=== PATIENT | male | born 1995 | race Caucasian/White ===

== ENCOUNTER 2022-05-27 03:43 | Emergency (ER) | payer OTHER, SELFPAY ==
[2022-05-27 03:54] VITALS: BP 166/120; PULSE 115; RESP 20; TEMP 36.6; O2SAT 96; BMI 31.9
--- NOTE | 2022-05-27 03:55 | XRR_ITS ---
PROCEDURE INFORMATION: Exam: XR Left Forearm Exam date and time: 05/27/2022 3:59 AM Age: 27 years old Clinical indication: Arm, lower; Lower or forearm; Patient HX: Swelling and pain to left forearm x 2 days from iv needle use. TECHNIQUE: Imaging protocol: Radiologic exam of the Left forearm. Views: 2 views. COMPARISON: No relevant prior studies available. FINDINGS: Bones/joints: Normal. Soft tissues: No foreign body. Negative for soft tissue gas. Mild superficial soft tissue swelling. XR/XR forearm LT 2V [id number] IMPRESSION: No retained soft tissue foreign body identified.
--- NOTE | 2022-05-27 03:55 | USR_ITS ---
PROCEDURE INFORMATION: Exam: US Duplex Left Upper Extremity Veins, Limited Exam date and time: 05/27/2022 4:07 AM Age: 27 years old Clinical indication: Arm, upper; Patient HX: Painful left upper extremity x 2-3 days. No trauma. No history of dvt per patient. ; Additional info: Pain TECHNIQUE: Imaging protocol: Real-time duplex ultrasound of the Left extremity with 2-D velásquez scale, color Doppler flow and spectral waveform analysis including responses to compression and other maneuvers (when performed) with image documentation. Limited exam focused on the left upper extremity veins. COMPARISON: CR ([facility], ) 05/27/2022 3:59 AM FINDINGS: Left deep veins: Unremarkable. Axillary and brachial veins are patent throughout without thrombus. Normal Doppler waveforms. Normal compressibility and/or augmentation response. Visualized internal jugular and subclavian veins are patent. Radial and ulnar veins are patent. Left superficial veins: Unremarkable. Visualized cephalic and basilic veins are patent without thrombus. Soft tissues: Unremarkable. US/[place] [id number] IMPRESSION: No evidence of deep vein thrombosis or superficial thrombophlebitis within left upper extremity.
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
[2022-05-27] MEDS: HYDROcodone-acetaminophen 5-325 mg Tablet 1 TAB PO (03:59)
[2022-05-27 04:35] LABS: Basophils % 0.2 %; Eosinophils # 0.1 10^3/uL (0.0-0.8); Eosinophils % 0.5 %; Hematocrit 49.5 % (42.0-52.0); Hemoglobin 16.3 g/dL (11.7-16.6); Lymphocytes # 2.3 10^3/uL (0.8-4.8); Lymphocytes % 13.9 %; Mean Corpuscular HGB Conc 32.9 g/dL (30.0-36.0); Mean Corpuscular Hemoglobin 27.6 pg (28.0-34.0); Mean Corpuscular Volume 83.8 fl (80-94); Mean Platelet Volume 9.4 fL (7.4-10.4); Monocytes # 2.2 10^3/uL (0.2-0.9); Monocytes % 13.2 %; Neutrophils # 11.87 10^3/uL (1.8-7.7); Nucleated Red Blood Cells % 0 %; Platelet Count 309 10^3/cmm (130-400); Red Blood Count 5.91 10^6/uL (4.1-5.3); Red Cell Distribution Width 12.9 % (12.1-15.1); White Blood Count 16.5 10^3/uL (4.0-10.0)
--- NOTE | 2022-05-27 04:48 | CTR_ITS ---
PROCEDURE INFORMATION: Exam: CTA Left Upper Extremity With Contrast Exam date and time: 05/27/2022 5:05 AM Age: 27 years old Clinical indication: Arm, lower; Lower or forearm; Patient HX: C/O left forearm pain and swelling x 2 days after iv needle use. TECHNIQUE: Imaging protocol: Computed tomographic angiography of the Left upper extremity with contrast, including non-contrast images if performed. 3D rendering (Not supervised by radiologist): MIP and/or 3D reconstructed images were created by the technologist. Radiation optimization: All CT scans at this facility use at least one of these dose optimization techniques: automated exposure control; mA and/or kV adjustment per patient size (includes targeted exams where dose is matched to clinical indication); or iterative reconstruction. Contrast material: OMNI 350; Contrast volume: 100 ml; Contrast route: INTRAVENOUS (IV); Other protocol: This patient has received 0 known CTs and 0 known cardiac nuclear medicine studies in the 12 months prior to the current study. COMPARISON: CR ([facility], ) 05/27/2022 3:59 AM RADIATION DOSE METRICS: Total DLP (mGy-cm): 294.38 FINDINGS: Left subclavian artery: No acute findings. No occlusion or significant stenosis. Axillary artery: No acute findings. No occlusion or significant stenosis. Brachial artery: No acute findings. No occlusion or significant stenosis. Radial artery: No acute findings. No occlusion or significant stenosis. Ulnar artery: No acute findings. No occlusion or significant stenosis. Bones/joints: No acute fracture. No dislocation. Soft tissues: Mild generalized superficial soft tissue edema the ventral surface of the proximal forearm. Negative for soft tissue gas. Negative for soft tissue foreign body. Negative for peripherally enhancing fluid collection. There may be mild generalized edema in the musculature underlying the region superficial soft tissue edema. CT/CT forearm LT w con [id number] IMPRESSION: Proximal forearm cellulitis changes. Myositis not excluded.
[2022-05-27 05:03] LABS: Erythrocyte Sedimentation Rate < 1 mm/hr (0-10)
[2022-05-27 05:12] LABS: Alanine Aminotransferase 21 U/L (0-41); Albumin Level 4.6 g/dL (3.5-5.2); Alkaline Phosphatase 74 U/L (40-130); Anion Gap 13.7 (5-19); Aspartate Amino Transferase 19 U/L (0-40); Blood Urea Nitrogen 10 mg/dL (6-20); Calcium 9.4 mg/dL (8.5-10.5); Carbon Dioxide 27 mmol/L (22-29); Chloride 101 mmol/L (98-107); Globulin 2.6 g/dL (1.3-4.6); Glomerular Filtration Rate 79.7 mL/min (90-130); Glucose 91 mg/dL (65-115); Osmolality Calculated 285 mOsm/kg (285-295); Potassium 3.7 mmol/L (3.5-5.1); Sodium 138 mmol/L (136-145); Total Bilirubin 0.5 mg/dL (0.15-1.2); Total Protein 7.2 g/dL (6.6-8.7)
[2022-05-27] MEDS: iohexol 350 mg/mL 500 mL Btl (per mL) IV (05:13)
[2022-05-27] MEDS: cephALEXin 500 mg Capsule PO (05:38)
== END 2022-05-27 05:47 | disposition home or self-care (01) ==
PROVIDERS: Emergency Provider Emergency Medicine
DX: L03.114 Cellulitis of left upper limb (principal)
CPT/HCPCS: 73090; 73201; 80053; 85025; 85651; 86140; 93971; 99285; Q9967

== ENCOUNTER 2022-06-24 15:39 | Emergency (ER) | payer OTHER, SELFPAY ==
[2022-06-24 15:46] VITALS: BP 152/83; PULSE 98; RESP 20; TEMP 36.4; O2SAT 97; BMI 32.3
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
[2022-06-24] MEDS: tetanus-dipt-pertussis 0.5 mL SDV IM (16:33)
[2022-06-24 16:53] VITALS: PULSE 88; RESP 16; O2SAT 100
== END 2022-06-24 16:55 | disposition home or self-care (01) ==
PROVIDERS: Emergency Provider Nurse Practitioner Family; PCP Nurse Practitioner Family
DX: S81.811A Laceration without foreign body, right lower leg, initial encounter (principal); W45.8XXA Other foreign body or object entering through skin, initial encounter; Z23 Encounter for immunization
CPT/HCPCS: 12001; 90471; 90715; 99283

== ENCOUNTER 2022-11-07 19:00 | Emergency (ER) | payer OTHER, SELFPAY ==
[2022-11-07 19:10] VITALS: BP 160/82; PULSE 103; RESP 22; TEMP 36.7; O2SAT 97; BMI 29.7
[2022-11-07 19:48] LABS: Basophils % 0.2 %; Eosinophils # 0.1 10^3/uL (0.0-0.8); Eosinophils % 1.1 %; Hematocrit 49.5 % (42.0-52.0); Hemoglobin 15.8 g/dL (11.7-16.6); Lymphocytes # 1.3 10^3/uL (0.8-4.8); Lymphocytes % 13.7 %; Mean Corpuscular HGB Conc 31.9 g/dL (30.0-36.0); Mean Corpuscular Hemoglobin 26.5 pg (28.0-34.0); Mean Corpuscular Volume 83.1 fl (80-94); Mean Platelet Volume 9.2 fL (7.4-10.4); Monocytes % 10.6 %; Neutrophils # 6.89 10^3/uL (1.8-7.7); Nucleated Red Blood Cells % 0 %; Platelet Count 261 10^3/cmm (130-400); Red Blood Count 5.96 10^6/uL (4.1-5.3); Red Cell Distribution Width 13.2 % (12.1-15.1); White Blood Count 9.3 10^3/uL (4.0-10.0)
[2022-11-07] MEDS: dexamethasone 10 mg/mL INJ IVP (19:48)
[2022-11-07] MEDS: clindamycin 600 MG/50 ML PREMIX 100 MG IV (19:48)
[2022-11-07] MEDS: sodium chloride 0.9% 1,000 ML 999 ML IV (19:48)
[2022-11-07 20:06] LABS: Alanine Aminotransferase 86 U/L (0-41); Albumin Level 3.9 g/dL (3.5-5.2); Alkaline Phosphatase 181 U/L (40-130); Anion Gap 14.8 (5-19); Aspartate Amino Transferase 41 U/L (0-40); Blood Urea Nitrogen 6 mg/dL (6-20); Calcium 9.3 mg/dL (8.5-10.5); Carbon Dioxide 26 mmol/L (22-29); Chloride 102 mmol/L (98-107); Creatinine Clr Calc Pharmacy 115.3183; Globulin 3.3 g/dL (1.3-4.6); Glucose 170 mg/dL (65-115); Osmolality Calculated 290 mOsm/kg (285-295); Potassium 3.8 mmol/L (3.5-5.1); Sodium 139 mmol/L (136-145); Total Bilirubin 0.3 mg/dL (0.15-1.2); Total Protein 7.2 g/dL (6.6-8.7)
--- NOTE | 2022-11-07 20:07 | ED_ITS ---
HPI - Fever General: Chief Complaint: Fever Stated Complaint: fever Time Seen by Provider: 11/07/22 19:19 History of Present Illness: 27 years old male brought to emergency room by mother because of sore throat, fever, malaise and fatigue within the past 3 to 4 days. Patient describes his throat with as throbbing sensation with severity of 7 out of 10 especially with swallowing and drinking. Denies any drooling, cough, coughing up blood or vomiting blood. No sick contacts or recent foreign travel has any neck pain, headache, blurry vision or change in vision. Numbness or tingling. No dysuria, hematuria urine frequency. Associated symptoms: Reports chills Review of Systems General: Reports: 10 or more systems reviewed and unremarkable except in HPI and below Const: Reports: fever(s), chills, body aches and malaise; Denies: change in weight, fatigue or diaphoresis ENMT: Reports: throat pain, enlarged tonsils, mouth pain and oral sores; Denies: bleeding gums, dental pain or dry mouth Resp: Denies: dyspnea, productive cough, non-productive cough, wheezing, stridor or pain on inspiration Skin/Breast: Denies: rash, pruritus, erythema, photosensitivity, skin pain, skin tenderness, skin swelling, sores or new lesions PFSH ED PFSH: Medical History No pertinent past medical history Social History Substance/Drug Use: current Physical Exam Const: COMMON NORMALS: no acute distress, average body habitus, patient oriented x3 and no limitations HENMT: MOUTH: moist mucous membranes abnormal and Abnormal oral and palatal mucosa present ulceration; no drooling, lip not abnormal, no muffled voice, no trismus, no restricted motion and no thickened frenulum THROAT: uvula midline, abnormal tonsil and posterior oropharynx abnormal edema, erythema and exudates; no postnasal drainage Neck/C-Spine: COMMON NORMALS: full ROM, supple, no meningeal signs and no JVD Lymph: LYMPHATIC: lymphadenopathy submandibular Chest: COMMONS NORMALS: normal inspection of the chest, normal palpation of entire chest wall, normal inspection of the breasts and normal palpation of the breasts Breast/axilla inspection: Yes normal inspection of the breasts BREAST/AXILLA PALPATION: Yes normal palpation of the breasts Resp: COMMON NORMALS: normal respiratory effort, No retractions, No use of accessory muscles, clear to auscultation bilaterally and percussion normal AUSCULTATION: clear to auscultation bilaterally PERCUSSION: percussion normal Cardio: COMMON NORMALS: no JVD GI: COMMON NORMALS: Normal to inspection, nondistended, normoactive bowel sounds present, Soft to palpation, non-tender, No hepatosplenomegaly present, no masses and no bruits PALPATION: Yes Soft to palpation and Yes No hepatosplenomegaly present Neuro: COMMON NORMALS: patient oriented x3 MENINGEAL SIGNS: Yes no meningeal signs Course Vital Signs: Vital signs: Vital Signs Temperature 98.1 F 11/07/22 19:10 Pulse Rate 103 H 11/07/22 19:10 Respiratory Rate 22 H 11/07/22 19:10 Blood Pressure 160/82 11/07/22 19:10 Pulse Oximetry 97 11/07/22 19:10 Oxygen Delivery Me thod Room Air 11/07/22 19:10 MDM - Fever Medical Decision Making Patient was made comfortable emergency room. No acute distress. Patient was given IV fluid, IV steroid and IV antibiotics. I discussed the lab finding with patient with mother at bedside. She remained stable in no acute distress. Differential Diagnosis Likely abdominal pain (Pharyngitis, uveitis, tonsillar abscess, viral syndrome), acute appendicitis, calculus of kidney, constipation and diverticulitis Lab Data 11/07/22 19:42 11/07/22 19:42 Laboratory Results WBC 9.3 10^3/uL (4.0-10.0) 11/07/22 19:42 RBC 5.96 10^6/uL (4.1-5.3) H 11/07/22 19:42 Hgb 15.8 g/dL (11.7-16.6) 11/07/22 19:42 Hct 49.5 % (42.0-52.0) 11/07/22 19:42 MCV 83.1 fl (80-94) 11/07/22 19:42 MCH 26.5 pg (28.0-34.0) L 11/07/22 19:42 MCHC 31.9 g/dL (30.0-36.0) 11/07/22 19:42 RDW 13.2 % (12.1-15.1) 11/07/22 19:42 Plt Count 261 10^3/cmm (130-400) 11/07/22 19:42 MPV 9.2 fL (7.4-10.4) 11/07/22 19:42 Neut % (Auto) 74.0 % 11/07/22 19:42 Lymph % (Auto) 13.7 % 11/07/22 19:42 M[place]racken % (Auto) 10.6 % 11/07/22 19:42 Eos % (Auto) 1.1 % 11/07/22 19:42 Baso % (Auto) 0.2 % 11/07/22 19:42 Neut # (Auto) 6.89 10^3/uL (1.8-7.7) 11/07/22 19:42 Lymph # (Auto) 1.3 10^3/uL (0.8-4.8) 11/07/22 19:42 [place] # (Auto) 1.0 10^3/uL (0.2-0.9) H 11/07/22 19:42 Eos # (Auto) 0.1 10^3/uL (0.0-0.8) 11/07/22 19:42 Baso # (Auto) 0.0 10^3/uL (0.0-0.1) 11/07/22 19:42 Nucleated RBC % (auto) 0 % 11/07/22 19:42 Nucleated RBCs # 0.0 /100WBC 11/07/22 19:42 Sodium 139 mmol/L (136-145) 11/07/22 19:42 Potassium 3.8 mmol/L (3.5-5.1) 11/07/22 19:42 Chloride 102 mmol/L (98-107) 11/07/22 19:42 Carbon Dioxide 26 mmol/L (22-29) 11/07/22 19:42 Anion Gap 14.8 (5-19) 11/07/22 19:42 BUN 6 mg/dL (6-20) 11/07/22 19:42 Creatinine 1.0 mg/dL (0.7-1.2) 11/07/22 19:42 GFR Calculation 89.0 mL/min (90-130) L 11/07/22 19:42 Glucose 170 mg/dL (65-115) H 11/07/22 19:42 Calculated Osmolality 290 mOsm/kg (285-295) 11/07/22 19:42 Calcium 9.3 mg/dL (8.5-10.5) 11/07/22 19:42 Total Bilirubin 0.3 mg/dL (0.15-1.2) 11/07/22 19:42 AST 41 U/L (0-40) H 11/07/22 19:42 ALT 86 U/L (0-41) H 11/07/22 19:42 Alkaline Phosphatase 181 U/L (40-130) H 11/07/22 19:42 Total Protein 7.2 g/dL (6.6-8.7) 11/07/22 19:42 Albumin 3.9 g/dL (3.5-5.2) 11/07/22 19:42 Globulin 3.3 g/dL (1.3-4.6) 11/07/22 19:42 Monoscreen Negative (Negative) 11/07/22 19:42 Group A Strep Rapid Negative (Negative) 11/07/22 19:50 Discharge Plan Discharge Patient Disposition: Home Clinical Impression: Viral infection, Pharyngitis Condition: Stable Prescriptions: New Medrol (Jacob) 4 mg tablets,dose pack 4 mg PO DAILY Qty: 21 0RF clindamycin HCl 150 mg capsule 150 mg PO TID 7 Days Qty: 21 0RF No Action hydrocodone-acetaminophen 5-325 mg tablet 1 tab PO Q6H PRN (Reason: pain) Qty: 14 0RF Discharge Orders: Discharge ED (Routine); Ordered 11/07/22 Ordered By: Julia Tidwell Referrals: Zee Guy APN [Primary Care Provider] - Discharge Diet: Advance as tolerated Discharge Activity: Resume usual activity Patient Instructions: Opioid Safety, Pain Management Coding Level of Care Code ED Alternative Energy Engineer for Joel Alonso
[2022-11-07 20:12] LABS: Rapid Strep A Test Negative (Negative)
[2022-11-07] MEDS: benzocaine 20% 7 gm 1 APPLIC MUCOUS MEM (20:23)
[2022-11-07 20:51] LABS: Monoscreen Negative (Negative)
[2022-11-07 21:16] VITALS: BP 140/70; PULSE 90; RESP 18; TEMP 36.7; O2SAT 98
== END 2022-11-07 21:18 | disposition home or self-care (01) ==
PROVIDERS: Emergency Provider Family Medicine; PCP Nurse Practitioner Family
DX: J02.9 Acute pharyngitis, unspecified (principal); B34.9 Viral infection, unspecified
CPT/HCPCS: 80053; 85025; 86308; 87081; 87880; 96374; 96375; 99284; J1100; J3490; J7030